=== PATIENT | male | born 1960 | race Caucasian/White ===

== ENCOUNTER → 2016-06-02 | Outpatient (CLI) | payer MEDICARE, MEDICAID ==
[~2016-06-02] MED LIST: ACET-2321 PO; DOXY25TA51 PO; ESCI10TA PO; LEVE1000 PO; MAG-76 PO; RANI-197 PO; SENN8.6T97 PO
[2016-06-02 05:23] LABS: BLOOD, URINE NEGATIVE (NEGATIVE); COLOR,URINE YELLOW (YELLOW); LEUKOCYTE ESTERASE ,URINE NEGATIVE (NEGATIVE); NITRITE,URINE NEGATIVE (NEGATIVE); UROBILINOGEN,URINE 0.2 EU/DL (NORMAL)
== END ==
LOC: LABN.BH 05:06
PROVIDERS: ATTEND Family Medicine
DX: R63.4 Abnormal weight loss (principal)
CPT/HCPCS: 81003

== ENCOUNTER → 2016-06-05 | Outpatient (CLI) | payer MEDICARE, MEDICAID ==
[2016-06-05 06:00] LABS: BASOPHILS # (AUTO) 0.1 T/MM3 (0-0.2); BASOPHILS % (AUTO) 1.3 % (0-2); EOSINOPHILS # (AUTO) 0.4 T/MM3 (0-0.5); HCT - HEMATOCRIT 41.4 % (41-53); HGB - HEMOGLOBIN 13.7 GM/DL (13.5-17.5); IMMATURE GRANULOCYTE # (AUTO) 0.02 T/MM3 (0.00-0.03); IMMATURE GRANULOCYTE % (AUTO) 0.3 % (0.0-0.5); LYMPHOCYTES # (AUTO) 1.9 T/MM3 (1-4.8); LYMPHOCYTES % (AUTO) 29.7 % (23-45); MEAN CORPUSCULAR HGB 30.4 UUG (26-34); MEAN CORPUSCULAR HGB CONC(MCHC 33.1 GM/DL (31-37); MEAN CORPUSCULAR VOLUME 91.8 UM3 (80-100); MEAN PLATELET VOLUME 9.5 UM3 (9.4-12.4); MONOCYTES # (AUTO) 0.5 T/MM3 (0-0.8); MONOCYTES % (AUTO) 8.4 % (0-9.0); NEUTROPHILS #(AUTO)-ABSOLUTE 3.4 T/MM3 (1.8-7.7); NEUTROPHILS % (AUTO) 53.3 % (33-66); RED BLOOD COUNT 4.51 M/MM3 (4.50-5.90); WBC - WHITE BLOOD COUNT 6.3 T/MM3 (4.5-11.0)
[2016-06-05 06:10] LABS: ALBUMIN/GLOBULIN RATIO 1.3 RATIO (1.1-2.2); ALKALINE PHOSPHATASE 61 U/L (38-126); ALT (SGPT) 33 U/L (21-72); ANION GAP 11 MEQ/L (5-15); AST (SGOT) 25 U/L (17-59); BUN/CREATININE RATIO 18 RATIO (6-26); CHLORIDE 103 MEQ/L (98-107); CO2 - CARBON DIOXIDE 29 MEQ/L (22-30); CREATININE 0.6 MG/DL (0.8-1.5); GLOMERULAR FILTRATION RATE 139; GLUCOSE 85 MG/DL (75-110); POTASSIUM 3.8 MEQ/L (3.6-5); SODIUM 143 MEQ/L (134-144)
[2016-06-05 06:40] LABS: THYROID STIM HORMONE-TSH 1.87 MIU/L (0.47-4.68)
== END ==
LOC: LABNH.PM 01:54 → LABNH.BH 04:17
PROVIDERS: ATTEND Family Medicine
DX: G40.309 Generalized idiopathic epilepsy and epileptic syndromes, not intractable, without status epilepticus (principal); R63.4 Abnormal weight loss
CPT/HCPCS: 36415; 80053; 84443; 85025; P9604